=== PATIENT | female | born 1995 | race Caucasian/White ===

== ENCOUNTER 2019-06-01 18:47 | Emergency (ER) | payer OTHER ==
[~2019-06-01] VITALS: Ht 162.6 cm; Wt 113.4 kg
[~2019-06-01 18:47] MED LIST: AMOXICILLIN875 MG PO; FLEXERIL PO; NAPROSYN375 MG PO; NOHOMEMEDICATIONS; NORCO 5-325 TA1 EACH PO
[2019-06-01] MEDS ORDERED: NEXPLANON68 MG SUBQ (18:54)
[2019-06-01] MEDS ORDERED: ZOFRAN ODT4 MG PO (19:32)
[2019-06-01 19:43] VITALS: BP 146/93
== END 2019-06-01 19:44 | disposition home or self-care (01) ==
LOC: M.ERS 18:47
DX: K52.9 Noninfective gastroenteritis and colitis, unspecified (principal); Z90.89 Acquired absence of other organs

== ENCOUNTER 2019-08-17 13:46 | Emergency (ER) | payer OTHER ==
[~2019-08-17] VITALS: Ht 162.6 cm; Wt 122.5 kg
[~2019-08-17 13:46] MED LIST changes: +NEXPLANON68 MG SUBQ; +ZOFRAN ODT4 MG PO
[2019-08-17] MEDS ORDERED: METHYLPREDNISOL32 MG (14:41)
[2019-08-17] MEDS ORDERED: DORYX MPC120 MG (14:42)
[2019-08-17 15:19] LABS: INFLUENZA A ANTIGEN Negative (Negative); INFLUENZA B ANTIGEN Negative (Negative)
[2019-08-17 15:45] VITALS: BP 154/102
[2019-08-17] MEDS ORDERED: PROMETH-CODEIN 65 ML PO (15:46)
== END 2019-08-17 15:45 | disposition home or self-care (01) ==
LOC: M.ERS 13:46
PROVIDERS: Physician Assistant
DX: J06.9 Acute upper respiratory infection, unspecified (principal); J02.9 Acute pharyngitis, unspecified; R11.10 Vomiting, unspecified; Z79.899 Other long term (current) drug therapy; Z90.89 Acquired absence of other organs

== ENCOUNTER 2020-03-26 21:07 | Emergency (ER) | payer OTHER ==
[~2020-03-26] VITALS: Ht 165.1 cm; Wt 122.5 kg
[~2020-03-26 21:07] MED LIST changes: +DORYX MPC120 MG; +METHYLPREDNISOL32 MG; +PROMETH-CODEIN 65 ML PO
[2020-03-26 21:45] LABS: ABSOLUTE EOSINOPHILS 0.3 thou/uL (0.0-0.7); ABSOLUTE LYMPHOCYTES 3.4 thou/uL (0.8-5.3); ABSOLUTE MONOCYTES 0.8 thou/uL (0.0-1.2); ABSOLUTE NEUTROPHILS 4.5 thou/uL (1.6-8.1); BASOPHILS 0.3 %; EOSINOPHILS 2.9 %; HEMOGLOBIN 14.9 gm/dL (12.0-15.0); LYMPHOCYTES 38.1 %; MCHC 33.8 g/dL (28.0-37.0); MCV 82.8 fL (80.0-100.0); MPV 7.1 fl. (7.2-11.1); NUCLEATED RBCS 0 /100WBC; PLATELET COUNT* 474 thou/uL (150-400); POLYS 49.7 %; RBC 5.31 mil/uL (4.20-5.00); RDW-CV 14.2 % (10.5-14.5)
[2020-03-26 21:51] LABS: URINE BILIRUBIN NEGATIVE (Negative); URINE BLOOD NEGATIVE (Negative); URINE CLARITY CLEAR; URINE COLOR YELLOW; URINE GLUCOSE-RANDOM NEGATIVE (Negative); URINE KETONES NEGATIVE (Negative); URINE LEUKOCYTES-REFLEX NEGATIVE (Negative); URINE NITRITE-REFLEX NEGATIVE (Negative); URINE PROTEIN NEGATIVE (Negative); URINE SPECIFIC GRAVITY >= 1.030 (1.005-1.030); URINE UROBILINOGEN 0.2 E.U./dl (0.2-1.0)
[2020-03-26 21:56] LABS: CALCIUM 9.2 mg/dL (8.5-10.1); CREATININE 0.9 mg/dL (0.6-1.3); POTASSIUM 3.6 mmol/L (3.5-5.1)
[2020-03-26 22:00] LABS: ALBUMIN 4.3 g/dL (3.4-5.0); TOTAL BILIRUBIN 0.5 mg/dL (<0.1-1.0); TOTAL PROTEIN 8.7 g/dL (6.4-8.2)
[2020-03-26] MEDS ORDERED: TRAMADOL 50 MG50 MG PO (23:02)
[2020-03-26] MEDS ORDERED: CIPROFLOXACIN500 M1 PO (23:02)
[2020-03-26] MEDS ORDERED: ZOFRAN ODT4 MG SUBLING (23:02)
[2020-03-26 23:25] VITALS: BP 149/68
== END 2020-03-26 23:28 | disposition home or self-care (01) ==
LOC: M.ERS 21:07
PROVIDERS: Family Medicine
DX: R10.30 Lower abdominal pain, unspecified (principal); R19.7 Diarrhea, unspecified; Z20.828 Contact with and (suspected) exposure to other viral communicable diseases; Z90.89 Acquired absence of other organs

== ENCOUNTER 2021-04-08 08:13 | Emergency (ER) | payer OTHER ==
[~2021-04-08] VITALS: Ht 165.1 cm; Wt 122.5 kg
[~2021-04-08 08:13] MED LIST changes: +CIPROFLOXACIN500 M1 PO; +TRAMADOL 50 MG50 MG PO; +ZOFRAN ODT4 MG SUBLING
[2021-04-08] MEDS ORDERED: HYDROCODON-ACE1 EAC7 PO (08:51)
[2021-04-08] MEDS ORDERED: PREDNISONE 20 M20 M1 PO (08:51)
[2021-04-08 09:13] VITALS: BP 151/83
== END 2021-04-08 09:14 | disposition home or self-care (01) ==
LOC: M.ERS 08:13
DX: M77.8 Other enthesopathies, not elsewhere classified (principal); M25.521 Pain in right elbow; Z79.899 Other long term (current) drug therapy